=== PATIENT | female | born 1980 | race Caucasian/White ===

== ENCOUNTER 2019-03-07 15:10 | Emergency (ER) | payer OTHER ==
[2019-03-07] MEDS ORDERED: ONDANSETRON 4 MG/2 ML VIAL ONE (16:36)
[2019-03-07] MEDS ORDERED: NA CHLORIDE 0.9% 1,000 ML ONE (16:36)
[2019-03-07] MEDS ORDERED: KETOROLAC 30 MG/ML INJ ONE (16:36)
[2019-03-07 16:48] LABS: Urine Blood 1+ (NEG); Urine Glucose NEGATIVE (NEG); Urine Protein TRACE (NEG); Urine Specific Gravity 1.025 (1.005-1.030); Urine pH 5.5 (5.0-7.0)
[2019-03-07 16:56] LABS: Urine Bacteria >50 /HPF (<20); Urine RBC <5 /HPF (NONE SEEN)
[2019-03-07 16:57] LABS: Urine Culture Reflex Order NOT NEEDED
[2019-03-07 17:01] LABS: Absolute Lymphocytes (CBC) 1.2 K/uL (0.7-4.9); Absolute Monocytes 0.6 K/uL (0.1-1.3); Absolute Neutrophil 2.9 K/uL (1.8-8.0); Basophils % 0.3 % (0-1.3); Eosinophils % 2.3 % (0-4.4); Hematocrit 40.5 % (36.0-45.0); Lymphocytes % 24.2 % (15.3-44.8); MPV 10.2 fL (7.6-11.3); Monocytes % 12.1 % (3.3-12.3); RBC Red Blood Cell Count 4.53 M/uL (3.86-4.86)
[2019-03-07 17:03] LABS: Albumin 3.5 g/dL (3.4-5.0); Bilirubin Direct 0.1 mg/dL (0-0.2); Bilirubin Total 0.5 mg/dL (0.2-1.0); Potassium 3.6 mmol/L (3.5-5.1); Protein, Total 7.8 g/dL (6.4-8.2)
--- NOTE | 2019-03-07 17:34 | RAD REPORT ---
EXAM DESCRIPTION: CT - Abdomen Pelvis W Contrast - 03/07/2019 5:19 pm CLINICAL HISTORY: Abdominal pain, right flank pain, right lower quadrant pain COMPARISON: None. TECHNIQUE: Biphasic, helical CT imaging of the abdomen and pelvis was performed following 100 ml non -ionic IV contrast. Oral contrast was given. All CT scans are performed using dose optimization technique as appropriate and may include automated exposure control or mA/KV adjustment according to patient size. FINDINGS: No suspicious findings in the lung bases. The liver, spleen, and pancreas show no suspicious findings. Gallbladder and biliary tree are also wi thout suspicious finding. Symmetric renal function is seen with no hydronephrosis or suspicious renal mass. No pyelonephritis o r acute parenchymal process. No bladder abnormalities. No adrenal abnormalities. Uterus is absent. Ov jovan are absent or atrophic. No adnexal mass. No dilated bowel loops or bowel wall thickening. Appendix is normal. No free air, free fluid or infla mmatory stranding. No hernia, mass or bulky lymphadenopathy. No suspicious bony findings. IMPRESSION: Contrast enhanced CT abdomen and pelvis showing no significant or suspicious finding.
--- NOTE | 2019-03-07 18:24 | ER ---
Nurse's Notes [facility] Name: Nelda Bryson Age: 39 yrs Sex: Female : 1980 Arrival Date: 03/07/2019 Time: 15:14 Bed 15 Private MD: Diagnosis: Acute abdominal pain;Acute Urinary Tract Infection Presentation: 03/07 15:16 Presenting complaint: Patient states: vomiting, fever, RLQ, right back pain, diarrhea, sv constipation, bloated started yesterday. Saw her PCP yesterday and was dx with "stomach bug". Transition of care: patient was not received from another setting of care. Onset of symptoms was March 06, 2019. Care prior to arrival: None. 15:16 Method Of Arrival: Ambulatory sv 15:16 Acuity: CARL 3 sv 18:46 Risk Assessment: Do you want to hurt yourself or someone else? Patient reports no ph desire to harm self or others. Initial Sepsis Screen: Does the patient meet any 2 criteria? No. Patient's initial sepsis screen is negative. Does the patient have a suspected source of infection? No. Patient's initial sepsis screen is negative. Historical: - Allergies: 15:18 OxyContin; sv - PMHx: 15:18 None; sv - PSHx: 15:18 Hysterectomy; sv - Immunization history:: Adult Immunizations unknown. - Social history:: The patient lives with spouse, Smoking status: Patient/guardian denies using tobacco. - Family history:: not pertinent. - Ebola Screening: : No symptoms or risks identified at this time. - Hospitalizations: : No recent hospitalization is reported. Screenin:44 Abuse screen: Denies threats or abuse. Denies injuries from another. Nutritional ph screening: No deficits noted. Tuberculosis screening: No symptoms or risk factors identified. Fall Risk None identified. Assessment: 15:45 General: Appears in no apparent distress. uncomfortable, obese, well groomed, Behavior ph is calm, cooperative, appropriate for age, Denies fever. Pain: Complains of pain in right lower quadrant Pain radiates to right low back and anterior aspect of right lateral abdomen. Neuro: Level of Consciousness is awake, alert, obeys commands, Oriented to person, place, time, situation. Cardiovascular: Capillary refill < 3 seconds in bilateral fingers Patient's skin is warm and dry. GI: Abdomen is round non-distended, Bowel sounds present X 4 quads. Abd is soft and non tender X 4 quads. Reports lower abdominal pain, constipation, nausea, vomiting. : Reports pain in right flank(s), lower quadrant(s) in lower back. Derm: Skin is intact, is healthy with good turgor, Skin is pink, warm \\T\\ dry. Musculoskeletal: Circulation, motion, and sensation intact. Range of motion: intact in all extremities. 17:00 Reassessment: Patient appears in no apparent distress at this time. Patient and/or ph family updated on plan of care and expected duration. Pain level reassessed. Patient is alert, oriented x 3, equal unlabored respirations, skin warm/dry/pink. 18:00 Reassessment: Patient appears in no apparent distress at this time. Patient and/or ph family updated on plan of care and expected duration. Pain level reassessed. Patient is alert, oriented x 3, equal unlabored respirations, skin warm/dry/pink. Patient states symptoms have improved. Vital Signs: 15:18 BP 105 / 66; Pulse 76; Resp 16; Temp 98.1; Pulse Ox 100% ; Weight 90.72 kg; Height 5 sv ft. 3 in. (160.02 cm); 16:30 BP 114 / 60; Pulse 72; Resp 18; Pulse Ox 98% on R/A; ph 17:30 BP 111 / 65; Pulse 73; Resp 16; Pulse Ox 99% on R/A; ph 18:44 BP 108 / 64; Pulse 72; Resp 16; Temp 97.9; Pulse Ox 99% on R/A; ph 15:18 Body Mass Index 35.43 (90.72 kg, 160.02 cm) sv ED Course: 15:14 Patient arrived in ED. as 15:17 Triage completed. sv 15:19 Arm band placed on. sv 15:24 Raymond Carlisle MD is Attending Physician. wa 15:33 Vivian Barr, FRANCISCO JAVIER is Primary Nurse. ph 16:00 Patient has correct armband on for positive identification. Bed in low position. Call ph light in reach. Side rails up X 1. Pulse ox on. NIBP on. Door closed. Noise minimized. Warm blanket given. 16:18 Inserted saline lock: 20 gauge in left antecubital area, using aseptic technique. Blood ph collected. 17:19 CT Abd/Pelvis - W/Contrast In Process Unspecified. EDMS 17:19 CT completed. Patient tolerated procedure well. Patient moved to CA. Patient moved back ne from CT. 18:45 No provider procedures requiring assistance completed. ph 19:05 IV discontinued, intact, bleeding controlled, No redness/swelling at site. Pressure ph dressing applied. Administered Medications: 16:45 Drug: NS 0.9% 1000 ml Route: IV; Rate: 1 bolus; Site: left antecubital; ph 18:47 Follow up: Response: No adverse reaction; IV Status: Completed infusion ph 16:46 Drug: Zofran 4 mg Route: IVP; Site: left antecubital; ph 18:47 Follow up: Response: No adverse reaction ph 16:48 Drug: TORadol 30 mg Route: IVP; Site: left antecubital; ph 18:48 Follow up: Response: No adverse reaction; Pain is decreased ph 18:41 Drug: Rocephin - (cefTRIAXone) 2 grams Route: IVPB; Infused Over: 30 mins; Site: left ph antecubital; 18:48 Follow up: Response: No adverse reaction; IV Status: Completed infusion ph Outcome: 18:23 Discharge ordered by . wa 19:05 Discharged to home ambulatory, with significant other. ph 19:05 Condition: good 19:05 Discharge instructions given to patient, family, Instructed on discharge instructions, follow up and referral plans. medication usage, Demonstrated understanding of instructions, follow-up care, medications, Prescriptions given X 1. 19:06 Patient left the ED. ph Signatures: Dispatcher [employer] EDDE Tara Walters RN RN sv Martinez, Amelia as Hall, Patricia, RN RN Naga Armstrong William, MD MD wa Corrections: (The following items were deleted from the chart) 15:19 15:18 Pulse 76bpm; Resp 16bpm; Pulse Ox 100%; Temp 98.1F; 90.72 kg; Height 5 ft. 3 in.; sv BMI: 35.4; sv
--- NOTE | 2019-03-07 18:24 | EDPHYS ---
Physician Documentation [facility] Name: Nelda Bryson Age: 39 yrs Sex: Female : 1980 Arrival Date: 03/07/2019 Time: 15:14 Bed 15 Private MD: ED Physician Raymond Carlisle HPI: 03/07 16:51 This 39 yrs old Female presents to ER via Ambulatory with complaints of wa Abdominal Pain, Constipation, Low Back Pain. 16:51 The patient presents with abdominal pain in the right upper quadrant, right lower wa quadrant, R flank lower back. Onset: The symptoms/episode began/occurred 2 day(s) ago. The symptoms do not radiate. Associated signs and symptoms: Pertinent positives: nausea and vomiting, Pertinent negatives: diarrhea, dysuria, fever. The symptoms are described as constant, sharp. Modifying factors: The symptoms are alleviated by nothing, the symptoms are aggravated by nothing. Severity of pain: At its worst the pain was moderate in the emergency department the pain is actually worse moderately. The patient has not experienced similar symptoms in the past. The patient has been recently seen by a physician: the patient's primary care provider, saw PMD yesterday. Historical: - Allergies: 15:18 OxyContin; sv - PMHx: 15:18 None; sv - PSHx: 15:18 Hysterectomy; sv - Immunization history:: Adult Immunizations unknown. - Social history:: The patient lives with spouse, Smoking status: Patient/guardian denies using tobacco. - Family history:: not pertinent. - Ebola Screening: : No symptoms or risks identified at this time. - Hospitalizations: : No recent hospitalization is reported. ROS: 16:53 Eyes: Negative for injury, pain, redness, and discharge, ENT: Negative for injury, wa pain, and discharge, Neck: Negative for injury, pain, and swelling, Cardiovascular: Negative for chest pain, palpitations, and edema, Respiratory: Negative for shortness of breath, cough, wheezing, and pleuritic chest pain, MS/Extremity: Negative for injury and deformity, Skin: Negative for injury, rash, and discoloration, Neuro: Negative for headache, weakness, numbness, tingling, and seizure, Psych: Negative for depression, anxiety, suicide ideation, homicidal ideation, and hallucinations. 16:53 Constitutional: Positive for chills, fever, malaise. 16:53 Abdomen/GI: Positive for abdominal pain, nausea and vomiting, of the anterior aspect of right lateral abdomen, right upper quadrant and right lower quadrant. 16:53 Back: Positive for pain at rest, of the lumbar area, sacrum, left low back and right low back. 16:53 All other systems are negative. 16:54 : Negative for hematuria, burning with urination. wa 16:54 MS/extremity: Positive for pain, of the lumbar area. Exam: 16:55 Constitutional: This is a well developed, well nourished patient who is awake, alert, wa and in no acute distress. Head/Face: Normocephalic, atraumatic. Eyes: Pupils equal round and reactive to light, extra-ocular motions intact. Lids and lashes normal. Conjunctiva and sclera are non-icteric and not injected. Cornea within normal limits. Periorbital areas with no swelling, redness, or edema. ENT: Nares patent. No nasal discharge, no septal abnormalities noted. Tympanic membranes are normal and external auditory canals are clear. Oropharynx with no redness, swelling, or masses, exudates, or evidence of obstruction, uvula midline. Mucous membranes moist. Neck: Trachea midline, no thyromegaly or masses palpated, and no cervical lymphadenopathy. Supple, full range of motion without nuchal rigidity, or vertebral point tenderness. No Meningismus. Chest/axilla: Normal chest wall appearance and motion. Nontender with no deformity. No lesions are appreciated. Cardiovascular: Regular rate and rhythm with a normal S1 and S2. No gallops, murmurs, or rubs. Normal PMI, no JVD. No pulse deficits. Respiratory: Lungs have equal breath sounds bilaterally, clear to auscultation and percussion. No rales, rhonchi or wheezes noted. No increased work of breathing, no retractions or nasal flaring. Skin: Warm, dry with normal turgor. Normal color with no rashes, no lesions, and no evidence of cellulitis. MS/ Extremity: Pulses equal, no cyanosis. Neurovascular intact. Full, normal range of motion. Neuro: Awake and alert, GCS 15, oriented to person, place, time, and situation. Cranial nerves II-XII grossly intact. Motor strength 5/5 in all extremities. Sensory grossly intact. Cerebellar exam normal. Normal gait. Psych: Awake, alert, with orientation to person, place and time. Behavior, mood, and affect are within normal limits. 16:55 Abdomen/GI: Inspection: abdomen appears normal, Bowel sounds: normal, Palpation: moderate abdominal tenderness, in the suprapubic area and right lower quadrant. 16:55 Back: pain, that is moderate, of the lumbar area, sacrum, left low back and right low back, CVA tenderness, is absent. Vital Signs: 15:18 BP 105 / 66; Pulse 76; Resp 16; Temp 98.1; Pulse Ox 100% ; Weight 90.72 kg; Height 5 sv ft. 3 in. (160.02 cm); 16:30 BP 114 / 60; Pulse 72; Resp 18; Pulse Ox 98% on R/A; ph 17:30 BP 111 / 65; Pulse 73; Resp 16; Pulse Ox 99% on R/A; ph 18:44 BP 108 / 64; Pulse 72; Resp 16; Temp 97.9; Pulse Ox 99% on R/A; ph 15:18 Body Mass Index 35.43 (90.72 kg, 160.02 cm) sv MDM: 15:25 Patient medically screened. wa 16:56 Differential diagnosis: appendicitis, bowel obstruction, non-specific abd pain, wa Pyelonephritis, Ureterolithiasis, urinary tract infection. 16:56 ED course: h/o total hysterectomy. h/o ureterolithiasis s/p extraction. will work up wa and reassess. 18:21 Data reviewed: vital signs, nurses notes. Test interpretation: by ED physician or wa midlevel provider: labs noted positive for pyuria consistent with UTI. CT abd/pelvis: no acute process. Response to treatment: the patient's symptoms have markedly improved after treatment. ED course: rocephin IV given. will d/c home with meds and advise close f/u. 03/07 15:54 Order name: Basic Metabolic Panel; Complete Time: 17:08 03/07 15:54 Order name: CBC with Diff; Complete Time: 17:03/07 15:54 Order name: Hepatic Function; Complete Time: 17:03/07 15:54 Order name: Lipase; Complete Time: 17:03/07 15:54 Order name: Urine Microscopic Only; Complete Time: 16:57 ne 03/07 16:45 Order name: Urine Dipstick--Ancillary (enter results); Complete Time: 16:57 03/07 15:54 Order name: IV Saline Lock; Complete Time: 16:57 ne 03/07 15:54 Order name: Labs collected and sent; Complete Time: 16:58 ne 03/07 15:54 Order name: Urine Dipstick-Ancillary (obtain specimen); Complete Time: 16:56 ne 03/07 15:55 Order name: CT Abd/Pelvis - W/Contrast; Complete Time: 17:53 ne Administered Medications: 16:45 Drug: NS 0.9% 1000 ml Route: IV; Rate: 1 bolus; Site: left antecubital; ph 18:47 Follow up: Response: No adverse reaction; IV Status: Completed infusion ph 16:46 Drug: Zofran 4 mg Route: IVP; Site: left antecubital; ph 18:47 Follow up: Response: No adverse reaction ph 16:48 Drug: TORadol 30 mg Route: IVP; Site: left antecubital; ph 18:48 Follow up: Response: No adverse reaction; Pain is decreased ph 18:41 Drug: Rocephin - (cefTRIAXone) 2 grams Route: IVPB; Infused Over: 30 mins; Site: left ph antecubital; 18:48 Follow up: Response: No adverse reaction; IV Status: Completed infusion ph Disposition: 03/07/19 18:23 Discharged to Home. Impression: Acute abdominal pain, Acute Urinary Tract Infection. - Condition is Stable. - Discharge Instructions: Urinary Tract Infection, Adult, [id number], Abdominal Pain, Adult, [id number]. - Prescriptions for Keflex 500 mg Oral Capsule - take 1 capsule by ORAL route every 8 hours for 5 days; 15 capsule. - Family Work Release, Medication Reconciliation Form, Thank You Letter, Antibiotic Education, Prescription Opioid Use form. - Follow up: Private Physician; When: 1 - 2 days; Reason: Recheck today's complaints. - Problem is new. - Symptoms have improved. - Notes: take tylenol and or motrin for pain as needed. take antibiotics as prescribed. see your doctor or return here immediately if worsening concerns Signatures: Dispatcher [employer] Tara Keys RN RN Vivian Barr RN RN [facility] HospitalRaymond MD MD wa Corrections: (The following items were deleted from the chart) 19:06 18:23 03/07/2019 18:23 Discharged to Home. Impression: Acute abdominal pain; Acute ph Urinary Tract Infection. Condition is Stable. Forms are Medication Reconciliation Form, Thank You Letter, Antibiotic Education, Prescription Opioid Use. Follow up: Private Physician; When: 1 - 2 days; Reason: Recheck today's complaints. Problem is new. Symptoms have improved. manuel
[2019-03-07] MEDS ORDERED: CEFTRIAXONE/SWI 1gm 1 GM/10 ML SYR ONE (18:46)
== END 2019-03-07 19:06 | disposition home or self-care (01) ==
LOC: ER 15:10
DX: N39.0 Urinary tract infection, site not specified (principal)
CPT/HCPCS: 36415; 74177; 80048; 80076; 81003; 81015; 83690; 85025; 96361; 96374; 96375; 99284; J0696; J2405; J7030; Q9967